=== PATIENT | female | born 1995 | race Caucasian/White ===

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

== ENCOUNTER 2018-01-30 09:42 | Day surgery (SDC) | payer BC ==
[~2018-01-30 09:42] MED LIST: LR 1,000 ML IV
[2018-01-30 11:08] LABS: CONTROL LINE UCG INT CTR LINE PRESENT; URINE PREG TEST NEGATIVE (NEGATIVE)
[2018-01-30] MEDS ORDERED: LIDOCAINE 2% INJ 100 MG/5 ML SDV (FOR ANES.) As Ordered (11:46)
[2018-01-30] MEDS ORDERED: MIDAZOLAM INJ 2 MG/2 ML VIAL (J2250) As Ordered (12:09)
[2018-01-30] MEDS ORDERED: dexameTHASONE 4 MG/ML 1ML VIAL (J1100) As Ordered (12:09)
[2018-01-30] MEDS ORDERED: fentaNYL 100 MCG/2 ML INJECTION (J3010) As Ordered (12:09)
[2018-01-30] MEDS ORDERED: PROPOFOL 200 MG/20 ML VIAL As Ordered (12:10)
[2018-01-30] MEDS ORDERED: ROCURONIUM BROMIDE 50 MG/5 ML VIAL As Ordered (12:10)
[2018-01-30] MEDS: METHYLENE BLUE 0.5% (5MG/ML) 10 ML AMP (PROVAYBLUE)(Q9968 PER 1MG) As Ordered (12:35)
[2018-01-30] MEDS: EPINEPHrine 1MG/ML INJ 30ML MD-VIAL As Ordered (12:35)
[2018-01-30] MEDS ORDERED: ONDANSETRON 4MG/2ML VIAL (J2405) As Ordered (12:47)
[2018-01-30] MEDS ORDERED: SUGAMMADEX SODIUM 500 MG/5 ML VIAL (BRIDION) As Ordered (12:57)
[2018-01-30] MEDS: LIDOCAINE W/EPINEPHRINE 1% 20ML VIAL As Ordered (13:04)
[2018-01-30] MEDS ORDERED: LR 1,000 ML IV ×2 (13:15→13:30)
[2018-01-30] MEDS ORDERED: METOCLOPRAMIDE INJ 10MG/2ML VIAL (J2765) IV (13:30)
[2018-01-30] MEDS ORDERED: fentaNYL 100 MCG/2 ML INJECTION (J3010) IV (13:30)
[2018-01-30] MEDS ORDERED: ONDANSETRON 4MG/2ML VIAL (J2405) IV (13:30)
[2018-01-30] MEDS: ACETAMINOPH W/CODEINE #3 TAB UD PO (14:15)
== END 2018-01-30 15:10 | disposition home or self-care (01) ==
LOC: M SDC 09:42
DX: J34.2 Deviated nasal septum (principal); Z79.899 Other long term (current) drug therapy
CPT/HCPCS: 30520

== ENCOUNTER → 2019-01-05 | Outpatient (REF) | payer BC ==
[~2019-01-05] MED LIST changes: +BIRTH CONTROL; +LILL1TAB PO; -LR 1,000 ML IV; +ONDA4TAB6 PO
== END ==
LOC: M SFHCWAGY 11:43
PROVIDERS: ATTEND Nurse Practitioner Women's Health
DX: Z12.4 Encounter for screening for malignant neoplasm of cervix (principal)

== ENCOUNTER → 2020-02-04 | Outpatient (REF) | payer BC | LOC: M LAB REF 15:00 | PROVIDERS: ATTEND Nurse Practitioner Women's Health | DX: Z12.4 Encounter for screening for malignant neoplasm of cervix (principal); R87.610 Atypical squamous cells of undetermined significance on cytologic smear of cervix (ASC-US) | CPT/HCPCS: 87624; G0123 ==

== ENCOUNTER → 2020-04-08 | Outpatient (REF) | payer BC ==
[2020-04-08 18:32] LABS: AMORPHOUS SEDIMENT SMALL (NEGATIVE); APPEARANCE, URINE CLOUDY (CLEAR); BACTERIA, URINE AUTO NEGATIVE (NEGATIVE); BILIRUBIN, URINE AUTO NEGATIVE (NEGATIVE); BLOOD, URINE BLOOD 1+ (NEGATIVE); COLOR, URINE YELLOW (YELLOW); GLUCOSE, URINE (UA) AUTO NEGATIVE (NEGATIVE); KETONE, URINE AUTO TRACE mg/dL (NEGATIVE); LEUKOCYTE ESTERASE, URINE AUTO 2+ (NEGATIVE); MUCUS, URINE SMALL (NEGATIVE); NITRITE, URINE AUTO NEGATIVE (NEGATIVE); PROTEIN, URINE AUTO 2+ mg/dL (NEGATIVE); RBC, URINE AUTO 10 /HPF (0-3); SPECIFIC GRAVITY URINE AUTO 1.019 (1.002-1.035); SQUAMOUS EPITHELIAL CELL UR AU 9 /HPF (0-6); UROBILINOGEN, URINE AUTO 0.2 mg/dL (0.0-2.0); WBC, URINE AUTO 145 /HPF (0-3)
== END ==
LOC: M LAB REF 16:37
PROVIDERS: ATTEND Physician Assistant
DX: N39.0 Urinary tract infection, site not specified (principal)

== ENCOUNTER → 2021-03-15 | Outpatient (REF) | payer BC ==
[2021-03-15 16:52] LABS: GC DNA AMPLIFICATION NEGATIVE (NEGATIVE)
== END ==
LOC: M SFHCWAGY 13:15
PROVIDERS: ATTEND Nurse Practitioner Women's Health
DX: Z11.3 Encounter for screening for infections with a predominantly sexual mode of transmission (principal); Z12.4 Encounter for screening for malignant neoplasm of cervix